=== PATIENT | female | born 1990 | race African-American/Black ===

== ENCOUNTER 2017-12-12 08:50 | Emergency (ER) | payer SELFPAY ==
[~2017-12-12] VITALS: Ht 160 cm; Wt 56.7 kg
[2017-12-12 09:10] VITALS: BP 106/70
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
[2017-12-12] MEDS ORDERED: IBUPROFEN600 MG ORAL (11:07)
[2017-12-12] MEDS ORDERED: CYCLOBENZAPRINE10 MG ORAL (11:07)
[2017-12-12 11:21] VITALS: BP 106/70
== END 2017-12-12 11:30 | disposition home or self-care (01) ==
LOC: EDBD 08:50 → EMR 11:20
DX: S50.311A Abrasion of right elbow, initial encounter (principal); M25.521 Pain in right elbow; V43.02XA Car driver injured in collision with other type car in nontraffic accident, initial encounter; Y92.9 Unspecified place or not applicable; Y99.9 Unspecified external cause status
CPT/HCPCS: 99283